=== PATIENT | male | born 1990 | race Caucasian/White ===

== ENCOUNTER 2021-07-20 16:09 | Inpatient (IN) | payer BC, SELFPAY ==
[~2021-07-20] VITALS: Ht 162.6 cm; Wt 48.1 kg
[2021-07-20 16:11] VITALS: BP_SYST 113
[2021-07-20 16:36] LABS: HEMATOCRIT 25.2 % (36-54); HEMOGLOBIN 7.9 g/dL (14.0-18.0); MEAN CORPUSCULAR VOLUME 68 fL (79.0-98.0); MONOCYTES # (AUTO) 0.9 K/uL (0.0-1.0); NEUTROPHILS # (AUTO) 14.4 K/uL (1.8-7.7); RED BLOOD CELL COUNT(AUTO) 3.71 MIL/uL (4.2-6.2)
[2021-07-20 16:59] LABS: BASOPHILS # (AUTO) 0.1 K/uL (0.0-0.2); BASOPHILS % (AUTO) 0.4 % (0.0-2.0); EOSINOPHILS % (AUTO) 0.1 % (0.0-4.0); LYMPHOCYTES # (AUTO) 1.5 K/uL (1.0-5.5); LYMPHOCYTES % (AUTO) 9.1 % (20.5-51.5); MEAN CORPUSCULAR HEMOGLOBIN 21 pg (27-31); MEAN CORPUSCULAR HGB CONC 31 % (32-36); MONOCYTES % (AUTO) 5.3 % (1.7-9.3); NEUTROPHILS % (AUTO) 85.1 % (40.0-70.0); PLATELET COUNT (AUTO) 577 K/uL (130-430); RED CELL DISTRIBUTION WIDTH 16.2 % (9.0-15.0)
[2021-07-20 17:45] LABS: ANION GAP 9 (5-15); CALCIUM 9.4 mg/dL (8.4-11.0); CHLORIDE 92 mmol/L (98-107); CREATININE 0.64 mg/dL (0.55-1.30); GLUCOSE 87 mg/dL (70-99); SODIUM SERUM 126 mmol/L (136-145); UREA NITROGEN, BLOOD 13 mg/dL (8-21)
[2021-07-20] MEDS ORDERED: IBUPROFEN 800 MG TABLET PO ONE (17:45)
[2021-07-20] MEDS ORDERED: NS 1000 ML IV.SOLN IV ONE (17:45)
[2021-07-20 17:47] LABS: INR 1.2 (0.80-1.20); PROTHROMBIN TIME 12.6 SECS (9.5-12.5)
[2021-07-20 17:51] LABS: ALANINE AMINOTRANSFERASE 22 U/L (12-78); AMYLASE 17 U/L (0-100); ASPARTATE AMINOTRANSFERASE 23 U/L (10-37); LIPASE 35 U/L (73-393); TOTAL BILIRUBIN 0.4 mg/dL (0.0-1.0)
[2021-07-20] MEDS ORDERED: SODIUM BICARBONATE 8.4% JECT 50 MEQ/50 ML SYRINGE IVP ONE (18:00)
[2021-07-20 18:01] LABS: GFR AFRICAN AMERICAN 189 mL/min (>90)
[2021-07-20 18:03] LABS: POTASSIUM 2.9 mmol/L (3.5-5.1)
[2021-07-20] MEDS ORDERED: POTASSIUM CHLORIDE 20 MEQ/PKT PACKET PO ONE (18:45)
[2021-07-20 20:58] LABS: BARBITURATE, URINE NEGATIVE (NEG <=200)
[2021-07-20 21:05] LABS: METHAMPHETAMINES SCREEN,URINE POSITIVE (NEG <=500); URINE AMPHETAMINE POSITIVE (NEG <=500)
[2021-07-20 21:06] LABS: BENZODIAZEPINE, URINE NEGATIVE (NEG <=150); CANNABINOID, URINE POSITIVE (NEG <=50); COCAINE, URINE NEGATIVE (NEG <=150); URINE METHADONE NEGATIVE (NEG <=200)
[2021-07-20 21:07] LABS: OPIATE, URINE NEGATIVE (NEG <=100); PHENCYCLIDINE SCREEN,URINE NEGATIVE (NEG <=25); URINE OXYCODONE SCREEN NEGATIVE (NEG <=100); URINE PROPOXYPHENE SCREEN NEGATIVE (NEG <=300)
[2021-07-20 21:08] LABS: UR TRICYCLIC ANTIDEPRESSANTS NEGATIVE (NEG <=300)
[2021-07-20] MEDS ORDERED: AZITHROMYCIN 500 MG/VIAL (ZITHROMAX) IV ONE (21:33)
[2021-07-20] MEDS ORDERED: cefTRIAXone 1 GM IVPB PREMIX 50 ML IV ONE (21:33)
[2021-07-20 21:45] VITALS: BP_SYST 105
[2021-07-20] MEDS ORDERED: ACETAMINOPHEN 325 MG TABLET PO PRN (21:45)
[2021-07-20] MEDS: AZITHROMYCIN 500 MG in NS 250 ML IV SCH (22:00)
[2021-07-20] MEDS: cefTRIAXone 1 GM IVPB PREMIX 50 ML IV SCH (22:00)
[2021-07-20] MEDS ORDERED: POTASSIUM CHLORIDE 20 MEQ TAB.PRT.SR PO ONE (22:00)
[2021-07-20] MEDS: traMADol HCL HCL 50 MG TABLET (ULTRAM) PO SCH (22:16)
[2021-07-20] MEDS ORDERED: KCL 20 mEq in D5NS 1000 mL 1,000 ML IV ONE (22:25)
[2021-07-20] MEDS: KCL 20 mEq in D5NS 1000 mL 1,000 ML IV SCH (23:25)
[2021-07-21] VITALS (7 sets, daily range): BP systolic 100–114
[2021-07-21] MEDS: traMADol HCL HCL 50 MG TABLET (ULTRAM) PO SCH ×5 (00:56→23:15)
[2021-07-21] MEDS: KCL 20 mEq in D5NS 1000 mL 1,000 ML IV SCH ×2 (08:13→17:54)
[2021-07-21] MEDS: LevALBUTEROL HCL 1.25 MG/0.5 ML *CONC.* VIAL.NEB (XOPENEX CONC.) INH SCH ×3 (08:53→20:10)
[2021-07-21 10:35] LABS: CALCIUM 8.2 mg/dL (8.4-11.0); CREATININE 0.49 mg/dL (0.55-1.30); PHOSPHORUS 2.5 mg/dL (2.7-4.5); POTASSIUM 3.4 mmol/L (3.5-5.1)
[2021-07-21 10:38] LABS: TOTAL IRON BIND. CAPACITY 132 ug/dL (250-450)
[2021-07-21 13:38] LABS: BASOPHILS % (AUTO) 0.3 % (0.0-2.0); EOSINOPHILS # (AUTO) 0.1 K/uL (0.0-0.4); EOSINOPHILS % (AUTO) 0.4 % (0.0-4.0); LYMPHOCYTES # (AUTO) 0.9 K/uL (1.0-5.5); LYMPHOCYTES % (AUTO) 5.9 % (20.5-51.5); MEAN CORPUSCULAR HEMOGLOBIN 21 pg (27-31); MEAN CORPUSCULAR HGB CONC 30 % (32-36); MEAN CORPUSCULAR VOLUME 70 fL (79.0-98.0); MONOCYTES # (AUTO) 0.8 K/uL (0.0-1.0); MONOCYTES % (AUTO) 5.3 % (1.7-9.3); NEUTROPHILS # (AUTO) 12.8 K/uL (1.8-7.7); NEUTROPHILS % (AUTO) 88.1 % (40.0-70.0); PLATELET COUNT (AUTO) 512 K/uL (130-430); RED BLOOD CELL COUNT(AUTO) 2.94 MIL/uL (4.2-6.2); RED CELL DISTRIBUTION WIDTH 16.2 % (9.0-15.0); WHITE BLOOD COUNT (AUTO) 14.5 K/uL (4.8-10.8)
[2021-07-21 13:50] LABS: HEMATOCRIT 20.7 % (36-54); HEMOGLOBIN 6.2 g/dL (14.0-18.0)
[2021-07-21] MEDS ORDERED: POTASSIUM CHLORIDE 20 MEQ TAB.PRT.SR PO ONE (14:45)
[2021-07-21] MEDS ORDERED: SOD FERRIC GLUC COMPLEX/SUC 125 MG in NS 100 ML IV SCH (18:00)
[2021-07-21] MEDS: AZITHROMYCIN 500 MG in NS 250 ML IV SCH (21:45)
[2021-07-21] MEDS: cefTRIAXone 1 GM IVPB PREMIX 50 ML IV SCH (21:45)
[2021-07-21] MEDS: ENOXAPARIN SODIUM 40 MG/0.4 ML SYRINGE SUBCUT SCH (21:49)
[2021-07-22 00:36] VITALS: BP_SYST 105; BP_SYST 162
[2021-07-22] MEDS: LevALBUTEROL HCL 1.25 MG/0.5 ML *CONC.* VIAL.NEB (XOPENEX CONC.) INH SCH ×4 (01:00→19:00)
[2021-07-22] MEDS: KCL 20 mEq in D5NS 1000 mL 1,000 ML IV SCH ×3 (03:45→23:04)
[2021-07-22] MEDS: traMADol HCL HCL 50 MG TABLET (ULTRAM) PO SCH ×4 (05:42→23:04)
[2021-07-22 07:30] LABS: BASOPHILS # (AUTO) 0.1 K/uL (0.0-0.2); BASOPHILS % (AUTO) 0.6 % (0.0-2.0); EOSINOPHILS # (AUTO) 0.1 K/uL (0.0-0.4); EOSINOPHILS % (AUTO) 1.2 % (0.0-4.0); HEMATOCRIT 27.4 % (36-54); HEMOGLOBIN 8.8 g/dL (14.0-18.0); LYMPHOCYTES # (AUTO) 1.2 K/uL (1.0-5.5); LYMPHOCYTES % (AUTO) 14.2 % (20.5-51.5); MEAN CORPUSCULAR HEMOGLOBIN 24 pg (27-31); MEAN CORPUSCULAR HGB CONC 32 % (32-36); MEAN CORPUSCULAR VOLUME 73 fL (79.0-98.0); MONOCYTES # (AUTO) 0.6 K/uL (0.0-1.0); MONOCYTES % (AUTO) 7.1 % (1.7-9.3); NEUTROPHILS # (AUTO) 6.3 K/uL (1.8-7.7); NEUTROPHILS % (AUTO) 76.9 % (40.0-70.0); PLATELET COUNT (AUTO) 541 K/uL (130-430); RED BLOOD CELL COUNT(AUTO) 3.75 MIL/uL (4.2-6.2); RED CELL DISTRIBUTION WIDTH 19.7 % (9.0-15.0); WHITE BLOOD COUNT (AUTO) 8.1 K/uL (4.8-10.8)
[2021-07-22 07:47] LABS: CALCIUM 8.4 mg/dL (8.4-11.0); CREATININE 0.47 mg/dL (0.55-1.30); PHOSPHORUS 3.6 mg/dL (2.7-4.5); POTASSIUM 3.7 mmol/L (3.5-5.1)
[2021-07-22 08:00] VITALS: BP_SYST 115
[2021-07-22 08:06] LABS: FOLATE (FOLIC ACID) 12.5 ng/mL (>3.0)
[2021-07-22] MEDS: SOD FERRIC GLUC COMPLEX/SUC 125 MG in NS 100 ML IV SCH (08:37)
[2021-07-22 09:38] LABS: ALCOHOL, BLOOD < 3 mg/dL (<10)
[2021-07-22 11:33] VITALS: BP_SYST 120
[2021-07-22 20:00] VITALS: BP_SYST 110
[2021-07-22] MEDS: AZITHROMYCIN 500 MG in NS 250 ML IV SCH (22:32)
[2021-07-22] MEDS: ENOXAPARIN SODIUM 40 MG/0.4 ML SYRINGE SUBCUT SCH (22:33)
[2021-07-22] MEDS: cefTRIAXone 1 GM IVPB PREMIX 50 ML IV SCH (22:33)
[2021-07-23] VITALS: BP_SYST 109
[2021-07-23] MEDS: LevALBUTEROL HCL 1.25 MG/0.5 ML *CONC.* VIAL.NEB (XOPENEX CONC.) INH SCH ×4 (01:00→19:35)
[2021-07-23] MEDS: traMADol HCL HCL 50 MG TABLET (ULTRAM) PO SCH ×4 (05:05→23:32)
[2021-07-23 08:00] VITALS: BP_SYST 102
[2021-07-23] MEDS: SOD FERRIC GLUC COMPLEX/SUC 125 MG in NS 100 ML IV SCH (10:37)
[2021-07-23 12:30] VITALS: BP_SYST 107
[2021-07-23 16:57] VITALS: BP_SYST 111
[2021-07-23] MEDS: KCL 20 mEq in D5NS 1000 mL 1,000 ML IV SCH (19:45)
[2021-07-23 20:00] VITALS: BP_SYST 113
[2021-07-23] MEDS: ENOXAPARIN SODIUM 40 MG/0.4 ML SYRINGE SUBCUT SCH (21:33)
[2021-07-23] MEDS: cefTRIAXone 1 GM IVPB PREMIX 50 ML IV SCH (21:33)
[2021-07-23] MEDS: AZITHROMYCIN 500 MG in NS 250 ML IV SCH (22:56)
[2021-07-24 00:33] VITALS: BP_SYST 119
[2021-07-24] MEDS: LevALBUTEROL HCL 1.25 MG/0.5 ML *CONC.* VIAL.NEB (XOPENEX CONC.) INH SCH ×3 (01:00→13:17)
[2021-07-24] MEDS: KCL 20 mEq in D5NS 1000 mL 1,000 ML IV SCH ×2 (05:22→22:29)
[2021-07-24] MEDS: traMADol HCL HCL 50 MG TABLET (ULTRAM) PO SCH ×2 (05:22→11:41)
[2021-07-24 06:47] LABS: BASOPHILS # (AUTO) 0.1 K/uL (0.0-0.2); EOSINOPHILS # (AUTO) 0.3 K/uL (0.0-0.4); EOSINOPHILS % (AUTO) 5.6 % (0.0-4.0); HEMATOCRIT 31.7 % (36-54); HEMOGLOBIN 10.1 g/dL (14.0-18.0); LYMPHOCYTES # (AUTO) 1.5 K/uL (1.0-5.5); LYMPHOCYTES % (AUTO) 23.6 % (20.5-51.5); MEAN CORPUSCULAR HEMOGLOBIN 24 pg (27-31); MEAN CORPUSCULAR HGB CONC 32 % (32-36); MEAN CORPUSCULAR VOLUME 74 fL (79.0-98.0); MONOCYTES # (AUTO) 0.9 K/uL (0.0-1.0); MONOCYTES % (AUTO) 13.8 % (1.7-9.3); NEUTROPHILS # (AUTO) 3.5 K/uL (1.8-7.7); PLATELET COUNT (AUTO) 716 K/uL (130-430); RED BLOOD CELL COUNT(AUTO) 4.31 MIL/uL (4.2-6.2); RED CELL DISTRIBUTION WIDTH 20.3 % (9.0-15.0); WHITE BLOOD COUNT (AUTO) 6.2 K/uL (4.8-10.8)
[2021-07-24 07:30] LABS: CREATININE 0.4 mg/dL (0.55-1.30); POTASSIUM 3.9 mmol/L (3.5-5.1)
[2021-07-24] MEDS ORDERED: HALOPERIDOL 5 MG TABLET (HALDOL) PO PRN (08:30)
[2021-07-24] MEDS ORDERED: DIPHENHYDRAMINE HCL 12.5 MG/5 ML UDC PO PRN (08:30)
[2021-07-24] MEDS: SOD FERRIC GLUC COMPLEX/SUC 125 MG in NS 100 ML IV SCH (11:18)
[2021-07-24 12:59] VITALS: BP_SYST 103
[2021-07-24 20:00] VITALS: BP_SYST 101
[2021-07-24] MEDS: cefTRIAXone 1 GM IVPB PREMIX 50 ML IV SCH (21:00)
[2021-07-24] MEDS: ENOXAPARIN SODIUM 40 MG/0.4 ML SYRINGE SUBCUT SCH (21:00)
[2021-07-24] MEDS: AZITHROMYCIN 500 MG in NS 250 ML IV SCH (22:26)
[2021-07-25 00:30] VITALS: BP_SYST 127
[2021-07-25] MEDS: LevALBUTEROL HCL 1.25 MG/0.5 ML *CONC.* VIAL.NEB (XOPENEX CONC.) INH SCH ×4 (00:57→19:37)
[2021-07-25] MEDS: traMADol HCL HCL 50 MG TABLET (ULTRAM) PO SCH ×5 (05:44→23:24)
[2021-07-25 08:00] VITALS: BP_SYST 147
[2021-07-25] MEDS: KCL 20 mEq in D5NS 1000 mL 1,000 ML IV SCH ×2 (08:23→18:09)
[2021-07-25] MEDS: SOD FERRIC GLUC COMPLEX/SUC 125 MG in NS 100 ML IV SCH (10:28)
[2021-07-25 12:25] VITALS: BP_SYST 97
[2021-07-25 16:59] VITALS: BP_SYST 124
[2021-07-25 19:44] VITALS: BP_SYST 117
[2021-07-25] MEDS: cefTRIAXone 1 GM IVPB PREMIX 50 ML IV SCH (20:42)
[2021-07-25] MEDS: ENOXAPARIN SODIUM 40 MG/0.4 ML SYRINGE SUBCUT SCH (20:43)
[2021-07-26] MEDS: LevALBUTEROL HCL 1.25 MG/0.5 ML *CONC.* VIAL.NEB (XOPENEX CONC.) INH SCH ×4 (01:00→19:12)
[2021-07-26 01:07] VITALS: BP_SYST 113
[2021-07-26] MEDS: KCL 20 mEq in D5NS 1000 mL 1,000 ML IV SCH ×2 (05:33→15:00)
[2021-07-26] MEDS: traMADol HCL HCL 50 MG TABLET (ULTRAM) PO SCH ×4 (05:33→23:43)
[2021-07-26 07:00] VITALS: BP_SYST 113
[2021-07-26] MEDS: SOD FERRIC GLUC COMPLEX/SUC 125 MG in NS 100 ML IV SCH (10:30)
[2021-07-26 12:57] VITALS: BP_SYST 115
[2021-07-26 16:37] VITALS: BP_SYST 114
[2021-07-26 19:00] VITALS: BP_SYST 116
[2021-07-26 20:00] VITALS: BP_SYST 116
[2021-07-26] MEDS: cefTRIAXone 1 GM IVPB PREMIX 50 ML IV SCH (21:00)
[2021-07-26] MEDS: ENOXAPARIN SODIUM 40 MG/0.4 ML SYRINGE SUBCUT SCH (21:05)
[2021-07-27] MEDS: KCL 20 mEq in D5NS 1000 mL 1,000 ML IV SCH ×2 (01:00→11:13)
[2021-07-27] MEDS: LevALBUTEROL HCL 1.25 MG/0.5 ML *CONC.* VIAL.NEB (XOPENEX CONC.) INH SCH ×4 (01:15→19:20)
[2021-07-27 01:22] VITALS: BP_SYST 103
[2021-07-27] MEDS: traMADol HCL HCL 50 MG TABLET (ULTRAM) PO SCH ×3 (06:00→17:27)
[2021-07-27 08:00] VITALS: BP_SYST 106
[2021-07-27] MEDS: SOD FERRIC GLUC COMPLEX/SUC 125 MG in NS 100 ML IV SCH (10:28)
[2021-07-27 11:04] VITALS: BP_SYST 106
[2021-07-27 12:47] VITALS: BP_SYST 112
[2021-07-27 16:55] VITALS: BP_SYST 108
[2021-07-27 20:00] VITALS: BP_SYST 111
[2021-07-27] MEDS: ENOXAPARIN SODIUM 40 MG/0.4 ML SYRINGE SUBCUT SCH (22:45)
[2021-07-28] VITALS: BP_SYST 120
[2021-07-28] MEDS: traMADol HCL HCL 50 MG TABLET (ULTRAM) PO SCH ×4 (00:19→17:21)
[2021-07-28] MEDS: KCL 20 mEq in D5NS 1000 mL 1,000 ML IV SCH ×3 (00:39→16:41)
[2021-07-28] MEDS: LevALBUTEROL HCL 1.25 MG/0.5 ML *CONC.* VIAL.NEB (XOPENEX CONC.) INH SCH ×4 (01:00→19:11)
[2021-07-28 08:12] VITALS: BP_SYST 112
[2021-07-28] MEDS: SOD FERRIC GLUC COMPLEX/SUC 125 MG in NS 100 ML IV SCH (09:44)
[2021-07-28 12:57] VITALS: BP_SYST 117
[2021-07-28 16:32] VITALS: BP_SYST 115
[2021-07-28 19:00] VITALS: BP_SYST 112
[2021-07-28 20:00] VITALS: BP_SYST 112
[2021-07-28] MEDS: ENOXAPARIN SODIUM 40 MG/0.4 ML SYRINGE SUBCUT SCH (20:17)
[2021-07-29] MEDS: LevALBUTEROL HCL 1.25 MG/0.5 ML *CONC.* VIAL.NEB (XOPENEX CONC.) INH SCH ×3 (01:00→20:04)
[2021-07-29 01:39] VITALS: BP_SYST 120
[2021-07-29] MEDS: traMADol HCL HCL 50 MG TABLET (ULTRAM) PO SCH ×4 (05:26→12:24)
[2021-07-29] MEDS: KCL 20 mEq in D5NS 1000 mL 1,000 ML IV SCH ×3 (05:27→20:43)
[2021-07-29 06:57] LABS: BASOPHILS # (AUTO) 0.1 K/uL (0.0-0.2); BASOPHILS % (AUTO) 0.8 % (0.0-2.0); EOSINOPHILS # (AUTO) 0.3 K/uL (0.0-0.4); EOSINOPHILS % (AUTO) 3.6 % (0.0-4.0); HEMATOCRIT 33.3 % (36-54); HEMOGLOBIN 10.8 g/dL (14.0-18.0); LYMPHOCYTES # (AUTO) 1.6 K/uL (1.0-5.5); LYMPHOCYTES % (AUTO) 16.8 % (20.5-51.5); MEAN CORPUSCULAR HEMOGLOBIN 24 pg (27-31); MEAN CORPUSCULAR HGB CONC 32 % (32-36); MEAN CORPUSCULAR VOLUME 74 fL (79.0-98.0); MONOCYTES # (AUTO) 0.7 K/uL (0.0-1.0); MONOCYTES % (AUTO) 7.2 % (1.7-9.3); NEUTROPHILS # (AUTO) 6.6 K/uL (1.8-7.7); NEUTROPHILS % (AUTO) 71.6 % (40.0-70.0); PLATELET COUNT (AUTO) 749 K/uL (130-430); RED BLOOD CELL COUNT(AUTO) 4.49 MIL/uL (4.2-6.2); RED CELL DISTRIBUTION WIDTH 22.5 % (9.0-15.0); WHITE BLOOD COUNT (AUTO) 9.3 K/uL (4.8-10.8)
[2021-07-29 07:33] LABS: CALCIUM 10.6 mg/dL (8.4-11.0); CREATININE 0.49 mg/dL (0.55-1.30); POTASSIUM 3.8 mmol/L (3.5-5.1)
[2021-07-29 07:57] VITALS: BP_SYST 127
[2021-07-29] MEDS: SOD FERRIC GLUC COMPLEX/SUC 125 MG in NS 100 ML IV SCH (11:19)
[2021-07-29 11:33] VITALS: BP_SYST 114
[2021-07-29 15:39] VITALS: BP_SYST 115
[2021-07-29] MEDS ORDERED: FERR250T2 PO (20:32)
[2021-07-29] MEDS ORDERED: FER300L PO (20:32)
[2021-07-29] MEDS ORDERED: FOLI-43 PO ×2 (20:33)
[2021-07-29] MEDS ORDERED: ALBMDI INH (20:34)
[2021-07-29] MEDS ORDERED: HAL5 PO (20:36)
[2021-07-29 20:42] VITALS: BP_SYST 131
[2021-07-29] MEDS: ENOXAPARIN SODIUM 40 MG/0.4 ML SYRINGE SUBCUT SCH (20:44)
[2021-07-30 00:30] VITALS: BP_SYST 119
[2021-07-30] MEDS: LevALBUTEROL HCL 1.25 MG/0.5 ML *CONC.* VIAL.NEB (XOPENEX CONC.) INH SCH ×3 (01:00→13:26)
[2021-07-30] MEDS: traMADol HCL HCL 50 MG TABLET (ULTRAM) PO SCH (06:24)
[2021-07-30 08:00] VITALS: BP_SYST 123
[2021-07-30] MEDS: KCL 20 mEq in D5NS 1000 mL 1,000 ML IV SCH (09:00)
[2021-07-30 12:00] VITALS: BP_SYST 121
[2021-07-30 14:14] VITALS: BP_SYST 120
[2021-07-30 16:00] VITALS: BP_SYST 124
== END 2021-07-30 17:30 | disposition home or self-care (01) | DRG 139 ==
LOC: SED 16:09 → SMU 19:54
PROVIDERS: ADMIT Family Medicine; ATTEND Family Medicine
PROC: 30233N1 Transfusion of Nonautologous Red Blood Cells into Peripheral Vein, Percutaneous Approach (ICD-10-PCS; principal; 2021-07-21)
DX: J18.9 Pneumonia, unspecified organism (principal); E43 Unspecified severe protein-calorie malnutrition; E87.1 Hypo-osmolality and hyponatremia; F29 Unspecified psychosis not due to a substance or known physiological condition; D50.9 Iron deficiency anemia, unspecified; F17.200 Nicotine dependence, unspecified, uncomplicated; F15.10 Other stimulant abuse, uncomplicated; F12.10 Cannabis abuse, uncomplicated; M19.90 Unspecified osteoarthritis, unspecified site; Z20.822 Contact with and (suspected) exposure to COVID-19; Z68.1 Body mass index [BMI] 19.9 or less, adult
CPT/HCPCS: 36415; 71045; 80048; 80053; 80307; 82150; 82550; 82607; 82728; 82746; 83540; 83550; 83605; 83690; 83735; 84100; 84484; 85025; 85610-TC; 85730-TC; 86886; 86900; 86901; 86920; 87040-TC; 93005; 94640; 94760; 96361; 96365; 97116-GP; 97163-GP; 97530-GP; 99285; G0482; J0456; J0696; J1650; J1956; J2916; J7050; J7612; P9021; U0003